=== PATIENT | female | born 1985 | race Asian ===

== ENCOUNTER → 2018-12-04 | Outpatient (CLI) | payer BC | END | disposition home or self-care (01) | LOC: LAB 06:37 | PROVIDERS: ATTEND Internal Medicine | DX: E03.9 Hypothyroidism, unspecified (principal); E78.5 Hyperlipidemia, unspecified; R73.03 Prediabetes | CPT/HCPCS: 80053; 80061; 82306; 83036; 84436; 84443; 85025 ==

== ENCOUNTER 2019-03-31 10:57 | Emergency (ER) | payer BC ==
[~2019-03-31] VITALS: Ht 147.3 cm; Wt 59.8 kg
[2019-03-31 10:59] VITALS: BP 112/65; PULSE 70; RESP 18; Ht 147.3 cm; Wt 59.8 kg
== END 2019-03-31 11:50 | disposition home or self-care (01) ==
LOC: E/R 10:57
DX: S61.245A Puncture wound with foreign body of left ring finger without damage to nail, initial encounter (principal); W46.0XXA Contact with hypodermic needle, initial encounter; Y92.89 Other specified places as the place of occurrence of the external cause
CPT/HCPCS: 80076; 85025; 86703; 86706; 86803; 87340; 99283